=== PATIENT | female | born 1955 | race African-American/Black ===

== ENCOUNTER 2021-02-15 05:33 | Observation (INO) ==
[2021-02-15] MEDS ORDERED: GABAPENTIN 400 MG CAPSULE PO ONE (06:29)
[2021-02-15] MEDS ORDERED: FAMOTIDINE 20 MG TABLET PO ONE (06:29)
[2021-02-15] MEDS ORDERED: DIAZEPAM 5 MG TABLET PO ONE (06:29)
[2021-02-15] MEDS ORDERED: ACETAMINOPHEN 500 MG TABLET PO ONE (06:29)
[2021-02-15] MEDS ORDERED: LACTATED RINGERS 1,000 ML IV SCH (06:30)
[2021-02-15] MEDS ORDERED: KETAMINE 500 MG/10 ML VIAL ONE (06:43)
[2021-02-15] MEDS ORDERED: ROPIVACAINE 0.5% 30 ML VIAL ONE (06:47)
[2021-02-15] MEDS ORDERED: DEXAMETHASONE 4 MG/1 ML VIAL ONE (06:47)
[2021-02-15] MEDS ORDERED: VANCOMYCIN 1,000 MG VIAL ONE (07:14)
[2021-02-15] MEDS ORDERED: CLINDAMYCIN INJ 900 MG/50 ML PREMIX IV ONE (07:15)
[2021-02-15] MEDS ORDERED: PHENYLEPHRINE 1 MG/10 ML SYRINGE IV ONE (08:11)
[2021-02-15] MEDS ORDERED: ONDANSETRON 4 MG/2 ML VIAL ONE (08:11)
[2021-02-15] MEDS ORDERED: BUPIVACAINE SPINAL 0.75% 2 ML AMP SPINAL ONE (08:11)
[2021-02-15] MEDS ORDERED: LABETALOL 20 MG/4 ML SYRINGE IV ONE (08:44)
[2021-02-15] MEDS ORDERED: propofoL 200 MG/20 ML VIAL IV ONE (08:44)
[2021-02-15] MEDS ORDERED: TRANEXAMIC ACID 1,000 MG/10 ML VIAL ONE (09:04)
[2021-02-15] MEDS ORDERED: SODIUM CHLORIDE 0.9% 1,000 ML IV ONE (09:28)
[2021-02-15] MEDS ORDERED: SODIUM CHLORIDE 0.9% 250 ML IV ONE (09:28)
[2021-02-15] MEDS ORDERED: TEMAZEPAM 7.5 MG CAPSULE PO PRN (09:32)
[2021-02-15] MEDS ORDERED: MAGNESIUM HYDROXIDE SUSP 30 ML UDCUP PO PRN (09:32)
[2021-02-15] MEDS ORDERED: LACTULOSE 20 GM/30 ML UDCUP PO PRN (09:32)
[2021-02-15] MEDS ORDERED: BISACODYL 10 MG SUPP RECTAL PRN (09:32)
[2021-02-15] MEDS ORDERED: ALBUTEROL 2.5 MG/3 ML NEB RESP TX PRN (09:34)
[2021-02-15] MEDS: CLINDAMYCIN INJ 900 MG/50 ML PREMIX IV SCH ×3 (13:38→22:57)
[2021-02-15] MEDS ORDERED: GLUCAGON 1 MG VIAL IM PRN (13:43)
[2021-02-15] MEDS ORDERED: DEXTROSE 50% 25 GM/50 ML VIAL IV PRN (13:43)
[2021-02-15] MEDS: MORPHINE 2 MG/1 ML SYRINGE IV PRN ×2 (15:59→23:44)
[2021-02-15] MEDS: metFORMIN 500 MG TABLET PO SCH (17:30)
[2021-02-15] MEDS: FONDAPARINUX 2.5 MG/0.5 ML SYRINGE SUBCUT SCH (20:47)
[2021-02-15] MEDS: SIMVASTATIN 20 MG TABLET PO SCH (20:47)
[2021-02-15] MEDS: ZALEPLON 5 MG CAPSULE PO SCH (20:47)
[2021-02-15] MEDS: FLUTICASONE 50 MCG NASAL SPRAY 16 GM BOTTLE BOTH NARES SCH (20:48)
[2021-02-15] MEDS: DOCUSATE SODIUM 100 MG CAPSULE PO SCH (20:48)
[2021-02-15] MEDS: diphenhydrAMINE CAP 25 MG CAPSULE PO PRN (23:45)
[2021-02-16] MEDS: diphenhydrAMINE CAP 25 MG CAPSULE PO PRN ×2 (04:27→10:05)
[2021-02-16 05:45] LABS: Basophils % 0.2 % (0.0-0.8); Hematocrit 36.1 VOL% (35.7-47.0); Hemoglobin 11.4 GM/DL (12.0-16.0); Immature Granulocytes % 0.5 %; Immature Granulocytes Absolute 0.05 #; Lymphocytes # 2.3 10*3/uL (1.4-4.0); Lymphocytes % 23.1 % (21.3-54.2); Mean Corpuscular HGB Conc 31.6 GM/DL (32-36); Mean Corpuscular Volume 93.8 FL (87-102); Monocytes % 7.5 % (1.7-12.7); Neutrophils % 68.7 % (38.7-73.9); Platelet Count 221 T/CUMM (130-400); Red Blood Count 3.85 MC/CUMM (3.8-5.5); Red Cell Distribution Width 13.1 % (9.3-17.3); White Blood Count 9.8 T/CUMM (4-12)
[2021-02-16] MEDS: LEVOTHYROXINE 50 MCG TABLET PO SCH (06:08)
[2021-02-16 06:14] LABS: Calcium 8.8 MG/DL (8.5-10.1); Osmolality,Calculated 276.5 MOS/KG (273-304); Potassium 3.4 MMOL/L (3.5-5.1)
[2021-02-16] MEDS: GABAPENTIN 300 MG CAPSULE PO SCH ×2 (07:53→08:28)
[2021-02-16] MEDS: metFORMIN 500 MG TABLET PO SCH ×2 (07:53→17:37)
[2021-02-16] MEDS: FUROSEMIDE 20 MG TABLET PO SCH ×2 (07:53→08:28)
[2021-02-16] MEDS: ASPIRIN CHEW 81 MG TABLET PO SCH ×2 (07:53→08:01)
[2021-02-16] MEDS: ESCITALOPRAM 10 MG TABLET PO SCH ×2 (07:54→08:28)
[2021-02-16] MEDS: DOCUSATE SODIUM 100 MG CAPSULE PO SCH ×3 (07:54→20:20)
[2021-02-16] MEDS: LOSARTAN 50 MG TABLET PO SCH ×2 (07:56→08:28)
[2021-02-16] MEDS: LINACLOTIDE 145 MCG CAPSULE PO SCH (08:28)
[2021-02-16] MEDS ORDERED: MEPERIDINE 25 MG/1 ML VIAL IV PRN (10:54)
[2021-02-16] MEDS: MEPERIDINE 50 MG/1 ML VIAL IV PRN ×2 (11:08→15:38)
[2021-02-16] MEDS: ONDANSETRON 4 MG/2 ML VIAL IV PRN (11:10)
[2021-02-16] MEDS: FLUTICASONE 50 MCG NASAL SPRAY 16 GM BOTTLE BOTH NARES SCH ×2 (11:12→20:21)
[2021-02-16] MEDS: FLUTICASONE 110 MCG/PUFF INHALER 12 GM INH SCH (11:17)
[2021-02-16] MEDS: POTASSIUM CHLORIDE 10 MEQ TABLET PO SCH (11:17)
[2021-02-16] MEDS: ALBUTEROL 2.5 MG/3 ML NEB RESP TX SCH (12:29)
[2021-02-16] MEDS: PROMETHAZINE 25 MG/1 ML VIAL IM PRN (15:38)
[2021-02-16] MEDS: ZALEPLON 5 MG CAPSULE PO SCH (20:20)
[2021-02-16] MEDS: SIMVASTATIN 20 MG TABLET PO SCH (20:20)
[2021-02-16] MEDS: FONDAPARINUX 2.5 MG/0.5 ML SYRINGE SUBCUT SCH (20:21)
[2021-02-17] MEDS: MEPERIDINE 50 MG/1 ML VIAL IV PRN ×2 (02:28→16:58)
[2021-02-17 05:43] LABS: Basophils # 0.1 10*3/uL (0.0-0.2); Basophils % 0.6 % (0.0-0.8); Eosinophils % 0.1 % (0.00-10.9); Hematocrit 33.2 VOL% (35.7-47.0); Immature Granulocytes % 0.5 %; Immature Granulocytes Absolute 0.04 #; Lymphocytes # 2.8 10*3/uL (1.4-4.0); Lymphocytes % 31.6 % (21.3-54.2); Mean Corpuscular HGB Conc 33.1 GM/DL (32-36); Mean Corpuscular Volume 91.5 FL (87-102); Mean Platelet Volume 10.4 FL (9.6-12.0); Monocytes % 9.1 % (1.7-12.7); Neutrophils % 58.1 % (38.7-73.9); Platelet Count 176 T/CUMM (130-400); Red Blood Count 3.63 MC/CUMM (3.8-5.5); Red Cell Distribution Width 12.7 % (9.3-17.3); White Blood Count 8.7 T/CUMM (4-12)
[2021-02-17 06:16] LABS: Calcium 8.4 MG/DL (8.5-10.1); Osmolality,Calculated 266.2 MOS/KG (273-304); Potassium 3.3 MMOL/L (3.5-5.1)
[2021-02-17] MEDS: LEVOTHYROXINE 50 MCG TABLET PO SCH (06:27)
[2021-02-17] MEDS: ALBUTEROL 2.5 MG/3 ML NEB RESP TX SCH (07:03)
[2021-02-17] MEDS: ESCITALOPRAM 10 MG TABLET PO SCH (08:38)
[2021-02-17] MEDS: metFORMIN 500 MG TABLET PO SCH ×2 (08:38→17:05)
[2021-02-17] MEDS: DOCUSATE SODIUM 100 MG CAPSULE PO SCH ×2 (08:38→20:18)
[2021-02-17] MEDS: GABAPENTIN 300 MG CAPSULE PO SCH (08:38)
[2021-02-17] MEDS: ASPIRIN CHEW 81 MG TABLET PO SCH (08:38)
[2021-02-17] MEDS: LOSARTAN 50 MG TABLET PO SCH (08:38)
[2021-02-17] MEDS: FUROSEMIDE 20 MG TABLET PO SCH (08:38)
[2021-02-17] MEDS: diphenhydrAMINE CAP 25 MG CAPSULE PO PRN (08:39)
[2021-02-17] MEDS: FLUTICASONE 110 MCG/PUFF INHALER 12 GM INH SCH (08:41)
[2021-02-17] MEDS: FLUTICASONE 50 MCG NASAL SPRAY 16 GM BOTTLE BOTH NARES SCH ×2 (08:41→20:19)
[2021-02-17] MEDS: POTASSIUM CHLORIDE 10 MEQ TABLET PO SCH ×2 (08:43→20:19)
[2021-02-17] MEDS ORDERED: TUBERCULIN SKIN TEST 0.1 ML SYRINGE INTRADERM ONE (09:08)
[2021-02-17] MEDS: ONDANSETRON 4 MG/2 ML VIAL IV PRN (11:51)
[2021-02-17] MEDS: LINACLOTIDE 145 MCG CAPSULE PO SCH (12:54)
[2021-02-17] MEDS: PROMETHAZINE 25 MG/1 ML VIAL IM PRN (16:57)
[2021-02-17] MEDS: ZALEPLON 5 MG CAPSULE PO SCH (20:18)
[2021-02-17] MEDS: SIMVASTATIN 20 MG TABLET PO SCH (20:18)
[2021-02-17] MEDS: FONDAPARINUX 2.5 MG/0.5 ML SYRINGE SUBCUT SCH (20:21)
[2021-02-18] MEDS: MEPERIDINE 50 MG/1 ML VIAL IV PRN ×2 (04:04→09:00)
[2021-02-18] MEDS: LEVOTHYROXINE 50 MCG TABLET PO SCH (06:14)
[2021-02-18 06:55] LABS: Calcium 8.8 MG/DL (8.5-10.1); Osmolality,Calculated 271.8 MOS/KG (273-304)
[2021-02-18] MEDS: ALBUTEROL 2.5 MG/3 ML NEB RESP TX SCH (07:10)
[2021-02-18] MEDS: GABAPENTIN 300 MG CAPSULE PO SCH (09:00)
[2021-02-18] MEDS: POTASSIUM CHLORIDE 10 MEQ TABLET PO SCH (09:00)
[2021-02-18] MEDS: metFORMIN 500 MG TABLET PO SCH (09:00)
[2021-02-18] MEDS: ASPIRIN CHEW 81 MG TABLET PO SCH (09:00)
[2021-02-18] MEDS: LOSARTAN 50 MG TABLET PO SCH (09:00)
[2021-02-18] MEDS: FUROSEMIDE 20 MG TABLET PO SCH (09:00)
[2021-02-18] MEDS: DOCUSATE SODIUM 100 MG CAPSULE PO SCH (09:00)
[2021-02-18] MEDS: ESCITALOPRAM 10 MG TABLET PO SCH (09:00)
[2021-02-18] MEDS: FLUTICASONE 50 MCG NASAL SPRAY 16 GM BOTTLE BOTH NARES SCH (09:00)
[2021-02-18] MEDS ORDERED: POTASSIUM CHLORIDE 20 MEQ TABLET PO ONE ×2 (10:00→10:13)
[2021-02-18] MEDS: LINACLOTIDE 145 MCG CAPSULE PO SCH ×2 (10:28→11:30)
== END 2021-02-18 11:09 | disposition swing bed (61) ==
LOC: N.OR 05:33 → N.SDSINP 05:37 → INTOOBSV 09:32 → N.3E 11:33
PROVIDERS: ADMIT Orthopaedic Surgery; ATTEND Orthopaedic Surgery